=== PATIENT | male | born 1960 | race Caucasian/White ===

== ENCOUNTER 2023-10-11 22:18 | Emergency (ER) | payer SELFPAY ==
[2023-10-11] MEDS ORDERED: Boostrix 0.5 ML (Tdap) VIAL (>/=7 yrs of age) ONE (23:29)
== END 2023-10-11 23:29 | disposition home or self-care (01) ==
LOC: ERS 22:18
DX: S01.01XA Laceration without foreign body of scalp, initial encounter (principal); W18.09XA Striking against other object with subsequent fall, initial encounter; Y93.89 Activity, other specified; Y92.59 Other trade areas as the place of occurrence of the external cause; Z23 Encounter for immunization
CPT/HCPCS: 12002; 36416; 70450; 72125; 90471; 90715; 93005